=== PATIENT | male | born 1990 | race Caucasian/White ===

== ENCOUNTER 2021-01-17 04:41 | Inpatient (IN) | payer SELFPAY ==
[~2021-01-17] VITALS: Ht 180.3 cm; Wt 86.2 kg
[2021-01-17] MEDS ORDERED: KETOROLAC 60MG/2ML VIAL IM ONE (05:45)
[2021-01-17] MEDS ORDERED: MORPHINE SULFATE 4 MG/ML CPJ (NOT FOR IM USE) IV ONE (06:30)
[2021-01-17] MEDS ORDERED: PROPOFOL 200MG/20ML VIAL IV ONE ×2 (08:45→10:00)
[2021-01-17] MEDS ORDERED: SODIUM CHLORIDE 0.9% 1,000 ML IV ONE (09:00)
[2021-01-17] MEDS ORDERED: HYDROMORPHONE HCL/PF 2MG/ML CPJ IV ONE (12:30)
[2021-01-17 14:51] LABS: HEMATOCRIT 40.3 % (42.0-52.0); HEMOGLOBIN 13.6 g/dL (14.0-18.0); MEAN CORPUSCULAR HEMOGLOBIN 30.2 pg (28.0-32.0); MEAN CORPUSCULAR VOLUME 89.2 fL (80.0-94.0); PLATELET 244 x1000/uL (130-400); RED BLOOD CELL COUNT 4.52 mill/uL (4.7-6.1); RED CELL DISTRIBUTION WIDTH 13.2 % (11.6-14.6)
[2021-01-17 14:54] LABS: CHLORIDE 103 mEq/L (98-107)
[2021-01-17 14:59] LABS: INR 1.1; PARTIAL THROMBOPLASTIN TIME 26.2 sec (23.4-31.0); PROTHROMBIN TIME 11.5 sec (9.6-11.0)
[2021-01-17] MEDS ORDERED: MAGNESIUM/ALUMINUM HYDROXIDE/SIMETHICONE 30ML UDC PO PRN (15:15)
[2021-01-17] MEDS ORDERED: IPRATROPIUM/ALBUTEROL 0.5-3(2.5)MG/3ML NEB NEB PRN (15:15)
[2021-01-17] MEDS ORDERED: DOCUSATE SODIUM 100MG CAPSULE PO PRN (15:15)
[2021-01-17] MEDS ORDERED: CLONIDINE 0.1MG TABLET PO PRN (15:15)
[2021-01-17] MEDS ORDERED: NITROGLYCERIN 0.4MG TABLET SL SL PRN (15:15)
[2021-01-17] MEDS ORDERED: NA PHOS,M-B/NA PHOS,DI-BA ENEMA 118ML PR PRN (15:15)
[2021-01-17] MEDS ORDERED: KETOROLAC 15MG/ML VIAL IV PRN (15:15)
[2021-01-17] MEDS ORDERED: GUAIFENESIN 200MG/10ML SUGAR FREE UDC PO PRN (15:15)
[2021-01-17] MEDS ORDERED: ACETAMINOPHEN 325MG TABLET PO PRN ×2 (15:15)
[2021-01-17] MEDS ORDERED: ONDANSETRON HCL 4MG/2ML INJ IV PRN (15:15)
[2021-01-17 16:02] LABS: VITAMIN B12 SERUM 318 pg/mL (211-911)
[2021-01-17 16:04] LABS: FOLIC ACID (FOLATE) SERUM > 20.00 ng/mL (>5.38)
[2021-01-17 16:40] VITALS: BP 162/88
[2021-01-17] MEDS: LORAZEPAM 0.5MG TABLET PO PRN (17:35)
[2021-01-17] MEDS ORDERED: KETOROLAC 30MG/ML VIAL IV PRN (19:00)
[2021-01-17 20:00] VITALS: BP 155/85
[2021-01-17 20:30] LABS: *BARBITURATES SCREEN URINE NEGATIVE (NEGATIVE); METHADONE URINE SCREEN NEGATIVE (NEGATIVE); OPIATES URINE SCREEN PRESUMTIVE POSITIVE (NEGATIVE)
[2021-01-17 20:31] LABS: *AMPHETAMINES SCREEN URINE NEGATIVE (NEGATIVE); *BENZODIAZEPINES SCREEN URINE NEGATIVE (NEGATIVE); CANNABINOID URINE SCREEN PRESUMTIVE POSITIVE (NEGATIVE); PHENCYCLIDINE URINE SCREEN NEGATIVE (NEGATIVE)
[2021-01-17 20:32] LABS: *COCAINE SCREEN URINE NEGATIVE (NEGATIVE)
[2021-01-17] MEDS ORDERED: ZOLPIDEM TARTRATE 5MG TABLET PO PRN (21:00)
[2021-01-17] MEDS: FAMOTIDINE 20MG TABLET PO SCH (21:00)
[2021-01-17] MEDS: MORPHINE SULFATE 2 MG/ML CPJ (NOT FOR IM USE) IV PRN (21:25)
[2021-01-18] VITALS: BP 157/89
[2021-01-18] MEDS: MORPHINE SULFATE 2 MG/ML CPJ (NOT FOR IM USE) IV PRN ×2 (02:35→12:31)
[2021-01-18 06:31] LABS: BASOPHILS % 0.3 % (0.0-2.0); EOSINOPHILS % 0.6 % (0.0-5.0); HEMATOCRIT. 41.5 % (42.0-52.0); HEMOGLOBIN. 14.1 g/dL (14.0-18.0); LYMPHOCYTES % 19.5 % (20.0-50.0); MEAN CORPUSCULAR HEMOGLOBIN 30.9 pg (28.0-32.0); MEAN CORPUSCULAR VOLUME 91.2 fL (80.0-94.0); MEAN PLATELET VOLUME 8.1 fl (7.4-10.4); MONOCYTES % 7.3 % (2.0-8.0); NEUTROPHILS % 72.3 % (40.0-76.0); PLATELET 225 x1000/uL (130-400); RED BLOOD CELL COUNT 4.55 mill/uL (4.7-6.1); RED CELL DISTRIBUTION WIDTH 13.4 % (11.6-14.6)
[2021-01-18 06:40] LABS: CHLORIDE 103 mEq/L (98-107)
[2021-01-18 06:52] LABS: PHOSPHORUS 2.5 mg/dL (2.5-4.9)
[2021-01-18] MEDS ORDERED: SUCCINYLCHOLINE CHLORIDE 200MG/10ML IV ONE (07:15)
[2021-01-18] MEDS ORDERED: FENTANYL CITRATE/PF 50MCG/ML 2ML VIAL ONE (07:15)
[2021-01-18] MEDS ORDERED: MIDAZOLAM HCL 2 MG/2 ML VIAL ONE (07:15)
[2021-01-18] MEDS ORDERED: PROPOFOL 200MG/20ML VIAL IV ONE (07:15)
[2021-01-18] MEDS ORDERED: LIDOCAINE HCL/PF 1% 10 MG/ML 5ML VIAL ONE (07:15)
[2021-01-18] MEDS ORDERED: ROCURONIUM BROMIDE 10MG/ML VIAL 5ML IV ONE (07:16)
[2021-01-18] MEDS ORDERED: ONDANSETRON HCL 4MG/2ML INJ ONE (07:26)
[2021-01-18] MEDS ORDERED: METOCLOPRAMIDE HCL 10MG/2ML VIAL ONE (07:26)
[2021-01-18] MEDS ORDERED: DEXAMETHASONE 4MG/ML 1ML VIAL ONE (07:27)
[2021-01-18] MEDS ORDERED: ESMOLOL HCL 10MG/ML 10ML VIAL IV ONE (08:12)
[2021-01-18] MEDS ORDERED: HYDROMORPHONE HCL/PF 2MG/ML CPJ IV PRN (08:30)
[2021-01-18] MEDS: FAMOTIDINE 20MG TABLET PO SCH ×2 (08:54→20:46)
[2021-01-18] MEDS: LORAZEPAM 0.5MG TABLET PO PRN ×2 (10:17→21:53)
[2021-01-18 12:00] VITALS: BP_SYST 132; BP_SYST 148; BP_DIAS 44; BP_DIAS 92
[2021-01-18 16:00] VITALS: BP 150/91
[2021-01-18] MEDS ORDERED: MORPHINE SULFATE 2 MG/ML CPJ (NOT FOR IM USE) IV PRN ×2 (17:30→23:00)
[2021-01-18 20:00] VITALS: BP 159/94
[2021-01-18] MEDS: TRAMADOL 50MG TABLET PO PRN (20:47)
[2021-01-19 00:05] VITALS: BP 149/84
[2021-01-19 04:00] VITALS: BP 155/88
[2021-01-19] MEDS: TRAMADOL 50MG TABLET PO PRN (04:44)
[2021-01-19 08:00] VITALS: BP 147/85
[2021-01-19] MEDS: FAMOTIDINE 20MG TABLET PO SCH (08:57)
[2021-01-19 10:21] VITALS: BP 148/87
== END 2021-01-19 10:51 | disposition home or self-care (01) | DRG 342 ==
LOC: ER 04:55 → 6EST 12:33 → EDBEDREQ 12:39 → EDBEDREQTM 12:39 → ENRESERV 14:50 → 6EST 01-18 23:39
PROVIDERS: ADMIT Internal Medicine; ATTEND Internal Medicine
PROC: 0RSKXZZ Reposition Left Shoulder Joint, External Approach (ICD-10-PCS; principal; 2021-01-18)
PROC: 2W39X3Z Immobilization of Left Upper Extremity using Brace (ICD-10-PCS; 2021-01-18)
DX: S43.025A Posterior dislocation of left humerus, initial encounter (principal); D64.9 Anemia, unspecified; S42.292A Other displaced fracture of upper end of left humerus, initial encounter for closed fracture; R03.0 Elevated blood-pressure reading, without diagnosis of hypertension; X58.XXXA Exposure to other specified factors, initial encounter; Y93.89 Activity, other specified; Y92.89 Other specified places as the place of occurrence of the external cause; Y99.8 Other external cause status
CPT/HCPCS: 36415; 71045; 73030; 73200; 76000; 80048; 80053; 80305; 80307; 82607; 82746; 83036; 83540; 83550; 83735; 84100; 84443; 85025; 85027; 87426; 93005; 97162; 97166; 99285; J0330; J1100; J1170; J1885; J2250; J2270; J2405; J2704; J2765; J3010; J3490; J7030; L3670